=== PATIENT | male | born 1955 | race Caucasian/White ===

== ENCOUNTER 2020-05-24 05:20 | Day surgery (SDC) | payer MEDICARE ==
[2020-05-24] VITALS (15 sets, daily range): BP systolic 116–136; BP diastolic 46–78
[~2020-05-24] VITALS: Ht 180.3 cm; Wt 84.8 kg
[2020-05-24] MEDS ORDERED: normal saline 1,000 ML IV SCH (05:50)
[2020-05-24] MEDS ORDERED: diphenhydrAMINE 25mg capsule PO PRN (05:50)
[2020-05-24] MEDS ORDERED: LORazepam 0.5 MG tablet PO PRN (05:50)
[2020-05-24] MEDS ORDERED: AMLO10TA PO (06:45)
[2020-05-24] MEDS ORDERED: HYDR-4070 PO (06:45)
[2020-05-24] MEDS ORDERED: CARV6.253 PO (06:45)
[2020-05-24] MEDS ORDERED: PRAV80TA3 PO (06:45)
[2020-05-24] MEDS ORDERED: METF500T PO (06:45)
[2020-05-24] MEDS ORDERED: OLME5TAB3 PO (06:45)
[2020-05-24] MEDS ORDERED: LIDOcaine/PRILOcaine 5gm cream TP ONE (06:50)
[2020-05-24 07:16] LABS: BASOPHILS # (AUTO) 0.1 X10'3 (0-0.2); BASOPHILS % (AUTO) 0.7 % (0-1); EOSINOPHILS # (AUTO) 0.2 X10'3 (0-0.9); EOSINOPHILS % (AUTO) 2.5 % (0-6); HEMATOCRIT 43.5 % (42.0-52.0); HEMOGLOBIN 14.6 g/dl (14.0-17.9); LYMPHOCYTES # (AUTO) 1.8 X10'3 (1.1-4.8); LYMPHOCYTES % (AUTO) 22.9 % (21-51); MEAN CORPUSCULAR HEMOGLOBIN 28.7 PG (27.0-31.0); MEAN CORPUSCULAR HGB CONC 33.5 g/dL (33.0-36.5); MEAN CORPUSCULAR VOLUME 85.6 FL (78-98); MEAN PLATELET VOLUME 9.9 FL (7.4-10.4); MONOCYTES # (AUTO) 0.6 X10'3 (0-0.9); MONOCYTES % (AUTO) 8.1 % (2-12); NEUTROPHILS # (AUTO) 5.2 X10'3 (1.8-7.7); NEUTROPHILS % (AUTO) 65.8 % (42-75); PLATELET COUNT 216 X10'3 (140-440); RED BLOOD COUNT 5.08 X10'6 (4.70-6.10); RED CELL DISTRIBUTION WIDTH 13.9 % (11.5-14.5); WHITE BLOOD COUNT 7.9 X10'3 (4.5-11.0)
[2020-05-24 07:22] LABS: ALBUMIN 4.1 G/DL (3.4-5.0); ANION GAP 7 (8-16); BLOOD UREA NITROGEN 11 MG/DL (7-18); BUN/CREATININE RATIO 16.7 (5.4-32.0); CHLORIDE 107 MMOL/L (99-107); CREATININE 0.66 MG/DL (0.60-1.10); GLUCOSE 127 MG/DL (70-104); POTASSIUM 3.8 MMOL/L (3.5-5.1); SODIUM 143 MMOL/L (135-145); TOTAL CARBON DIOXIDE 28.8 MMOL/L (24-32); eGFR > 90 ML/MIN
[2020-05-24] MEDS ORDERED: nitroGLYCERIN-Tridil 50MG/D5W 250 ML IV ONE (07:41)
[2020-05-24] MEDS ORDERED: iohexol 350 MG/ML 50ML vial IV ONE ×2 (07:41→08:12)
[2020-05-24] MEDS ORDERED: verapamil 2.5 mg/ml inj IV ONE (07:41)
[2020-05-24] MEDS ORDERED: heparin 1,000unit/ml 10ml vial 10 ML ONE (07:41)
[2020-05-24] MEDS ORDERED: midazolam 2 mg/2 ml injection ONE (07:41)
[2020-05-24] MEDS ORDERED: fentaNYL/PF 50MCG/1 ML 2ML syringe ONE (07:41)
[2020-05-24] MEDS ORDERED: LIDOcaine 1% (10mg/ml)w/preservative injection 20ml MDV ONE (07:41)
[2020-05-24] MEDS ORDERED: iohexol 350MG/ML 100ml bottle IV ONE (07:41)
== END 2020-05-24 15:20 | disposition home or self-care (01) ==
LOC: SSTAY O 05:20
PROVIDERS: ATTEND Internal Medicine Cardiovascular Disease
DX: R94.31 Abnormal electrocardiogram [ECG] [EKG] (principal); R06.02 Shortness of breath; R53.83 Other fatigue; I25.10 Atherosclerotic heart disease of native coronary artery without angina pectoris; E11.9 Type 2 diabetes mellitus without complications; I10 Essential (primary) hypertension; E78.5 Hyperlipidemia, unspecified; E66.3 Overweight; Z68.25 Body mass index [BMI] 25.0-25.9, adult; I35.0 Nonrheumatic aortic (valve) stenosis; I71.2 Thoracic aortic aneurysm, without rupture; Z79.84 Long term (current) use of oral hypoglycemic drugs; Z79.899 Other long term (current) drug therapy; Z87.891 Personal history of nicotine dependence; Z90.49 Acquired absence of other specified parts of digestive tract; Z82.49 Family history of ischemic heart disease and other diseases of the circulatory system
CPT/HCPCS: 36415; 80048; 85025; 85610; 93005; 93460; 93567; 99152; 99153; C1769; C1887; C1894; J1644; J2001; J2250; J3010; J7030; Q0163; Q9967; A4620; C1751; J3490

== ENCOUNTER 2020-06-28 19:20 | Emergency (ER) | payer MEDICARE ==
[~2020-06-28] VITALS: Ht 180.3 cm; Wt 81.0 kg
[~2020-06-28 19:20] MED LIST: AMLO10TA PO; CARV6.253 PO; HYDR-4070 PO; METF500T PO; OLME5TAB3 PO; PRAV80TA3 PO
[2020-06-28 20:21] LABS: BASOPHILS # (AUTO) 0.1 X10'3 (0-0.2); BASOPHILS % (AUTO) 0.7 % (0-1); EOSINOPHILS # (AUTO) 0.4 X10'3 (0-0.9); EOSINOPHILS % (AUTO) 2.3 % (0-6); HEMATOCRIT 36.4 % (42.0-52.0); HEMOGLOBIN 11.7 g/dl (14.0-17.9); LYMPHOCYTES # (AUTO) 1.5 X10'3 (1.1-4.8); LYMPHOCYTES % (AUTO) 9.4 % (21-51); MEAN CORPUSCULAR HEMOGLOBIN 28.4 PG (27.0-31.0); MEAN CORPUSCULAR HGB CONC 32.3 g/dL (33.0-36.5); MEAN CORPUSCULAR VOLUME 87.7 FL (78-98); MEAN PLATELET VOLUME 7.4 FL (7.4-10.4); MONOCYTES # (AUTO) 1.5 X10'3 (0-0.9); MONOCYTES % (AUTO) 9.5 % (2-12); NEUTROPHILS # (AUTO) 12.7 X10'3 (1.8-7.7); NEUTROPHILS % (AUTO) 78.1 % (42-75); PLATELET COUNT 453 X10'3 (140-440); RED BLOOD COUNT 4.14 X10'6 (4.70-6.10); WHITE BLOOD COUNT 16.2 X10'3 (4.5-11.0)
[2020-06-28 20:35] LABS: ALANINE AMINOTRANSFERASE 227 U/L (12-78); ALBUMIN 3.3 G/DL (3.4-5.0); ALBUMIN/GLOBULIN RATIO 0.7 (1.1-1.5); ALKALINE PHOSPHATASE 102 IU/L (46-116); ANION GAP 7 (8-16); ASPARTATE AMINO TRANSFERASE 103 U/L (10-37); BILIRUBIN,TOTAL 0.2 MG/DL (0.1-1.0); BLOOD UREA NITROGEN 9 MG/DL (7-18); BUN/CREATININE RATIO 11.8 (5.4-32.0); CALCIUM 9.9 MG/DL (8.5-10.1); CHLORIDE 98 MMOL/L (99-107); CREATININE 0.76 MG/DL (0.60-1.10); GLUCOSE 158 MG/DL (70-104); POTASSIUM 4.7 MMOL/L (3.5-5.1); SODIUM 138 MMOL/L (135-145); TOTAL CARBON DIOXIDE 32.8 MMOL/L (24-32); TOTAL PROTEIN 7.8 G/DL (6.4-8.2); eGFR > 90 ML/MIN
--- NOTE | 2020-06-28 21:18 | NUR ---
[facility] [phone]
--- NOTE | 2020-06-28 21:22 | NUR ---
md aware of trop 0.19
[2020-06-28 21:49] LABS: MAGNESIUM 2.1 MG/DL (1.5-2.4)
[2020-06-28 21:53] LABS: PARTIAL THROMBOPLASTIN TIME 27 SECONDS (22-32)
[2020-06-28] MEDS ORDERED: normal saline 1000ml 1,000 ML IV ONE (22:00)
[2020-06-28] MEDS ORDERED: normal saline 1000ML IV soln IVB ONE (22:00)
[2020-06-28] MEDS ORDERED: iohexol 300mg/ml 100ml inj. ONE (22:13)
[2020-06-28] MEDS ORDERED: levoFLOXACIN-Levaquin 750MG/D5 150 ML IV ONE (23:15)
[2020-06-28] MEDS ORDERED: vancomycin/NS 1 GM ADD-VANTAGE 250 ML IV ONE (23:15)
--- NOTE | 2020-06-29 00:10 | NUR ---
MD MADE AWARE OF NEED FOR PAIN MEDICATION. MD ORDERED 2MG IV MORPHINE AND ANOTHER 500 NS. PT IN BED ON PHONE WITH . AWARE OF PLAN TO TRANSPORT.
[2020-06-29] MEDS ORDERED: morphine 2 MG/ML inj. syringe IV ONE ×2 (00:15→15:00)
--- NOTE | 2020-06-29 00:25 | NUR ---
PT APPEARS TO HAVE INCREASED WORK OF BREATHING. MD AWARE. FLUIDS STOPPED. TOTAL OF 750 MLS GIVEN OF NS IN ED. MORPHINE HAS IMPROVED PAIN. PT REPOSITIONED. DISCUSSED NATURE OF PAIN WITH MD. PT REPORTS THAT NECK PAIN IS ALSO ACROSS SHOULDERS. PT STATES THAT HE HAS HAD THIS PAIN SINCE SURGERY, BUT THINKS IT IS GETTING WORSE SITTING IN BED SO MUCH. STATED CONCERNS TO MD REGARDING THE PAIN BEING CONNECTED TO CARDIAC. PT DENIES CHEST PAIN. IV ANTIBIOTICS STILL RUNNING. DISCUSSED WITH MANAGER OF BUSINESS HAVING COME BACK TO SIT WITH PATIENT WHILE AWAITING TRANSPORT. RN, MANAGER OF BUSINESS, AND PRIMARY RN AGREE TO COMING BACK.
--- NOTE | 2020-06-29 00:26 | NUR ---
ADDITIONALLY, PT'S 150 ML/HR FLUIDS STOPPED.
[2020-06-29 00:51] LABS: CREATINE KINASE 30 U/L (39-308)
[2020-06-29 01:28] LABS: CLARITY,URINE CLEAR (Clear); COLOR,URINE YELLOW (Yellow); GLUCOSE, URINE NEGATIVE (Neg); KETONES,URINE NEGATIVE (Neg); LEUKOCYTE ESTERASE ,URINE NEGATIVE (Neg); NITRITES, URINE NEGATIVE (Neg); OCCULT BLOOD,URINE NEGATIVE (Neg); PROTEIN,URINE NEGATIVE (Neg); UA COLLECTION TYPE NON-SPECIFIED; UROBILINOGEN,URINE 0.2 E.U/dL (0.2-1.0)
--- NOTE | 2020-06-29 02:15 | NUR ---
PRIMARY RN ON BREAK . PT C/O OF NECK DISCOMFORT WARM MOIST COMPRESS APPLIED
--- NOTE | 2020-06-29 03:10 | NUR ---
CALLED [facility] PT IS ACCEPTED BUT WE JUST HAVE TO WAIT FOR A BED
[2020-06-29] MEDS: morphine 2 MG/ML inj. syringe IV PRN ×5 (03:16→12:05)
[2020-06-29] MEDS ORDERED: vancomycin/NS 1 GM ADD-VANTAGE 250 ML IV SCH (14:00)
--- NOTE | 2020-06-29 15:32 | NUR ---
NIYAHLLDonnell AND CLEAR LIQUIDS GIVEN PER MD
[2020-06-29] MEDS ORDERED: morphine 4 MG/ML inj SYRINge IV ONE (17:10)
--- NOTE | 2020-06-29 18:48 | NUR ---
ATTEMPTED TO CALL REPORT BUT THEY ARE CHANGING SHIFT AND ASKED IF I CALL BACK AT 2030.
--- NOTE | 2020-06-29 20:33 | NUR ---
REPORT CALLED TO [facility]
--- NOTE | 2020-06-29 20:55 | NUR ---
REACH AT BEDSIDE TO TRANSPORT PATIENT.
[2020-06-29 21:10] VITALS: BP 136/63
[2020-06-30] MEDS ORDERED: VANCOMYCIN LEVEL IV ONE (13:30)
== END 2020-06-29 21:13 | disposition short-term general hospital (02) ==
LOC: ER 19:21
DX: T81.43XA Infection following a procedure, organ and space surgical site, initial encounter (principal); J98.51 Mediastinitis; R77.8 Other specified abnormalities of plasma proteins; Z98.890 Other specified postprocedural states; Z79.899 Other long term (current) drug therapy; Y83.8 Other surgical procedures as the cause of abnormal reaction of the patient, or of later complication, without mention of misadventure at the time of the procedure; Y92.89 Other specified places as the place of occurrence of the external cause
CPT/HCPCS: 36415; 71045; 71260; 80053; 81003; 82550; 82553; 83605; 83735; 83874; 83880; 84145; 84484; 85025; 85610; 85730; 87040; 87635; 96361; 96365; 96366; 96367; 96368; 96375; 96376; 99291; C9803; J1956; J2270; J3370; J7030; Q9967

== ENCOUNTER 2021-10-13 14:52 | Emergency (ER) | payer MEDICARE ==
[~2021-10-13] VITALS: Ht 180.3 cm; Wt 86.0 kg
[2021-10-13 15:10] VITALS: BP 133/77
[2021-10-13] MEDS ORDERED: normal saline 1000ML IV soln IVB ONE (15:35)
[2021-10-13] MEDS ORDERED: ondansetron/PF 4mg/2ml inj IV ONE (15:35)
[2021-10-13 16:20] LABS: BASOPHILS % (AUTO) 0.2 % (0-1); EOSINOPHILS % (AUTO) 0.2 % (0-6); HEMATOCRIT 44.3 % (42.0-52.0); HEMOGLOBIN 15.5 g/dl (14.0-17.9); LYMPHOCYTES % (AUTO) 8.9 % (21-51); MEAN CORPUSCULAR HGB CONC 35.1 g/dL (33.0-36.5); MEAN CORPUSCULAR VOLUME 82.6 FL (78-98); MEAN PLATELET VOLUME 8.4 FL (7.4-10.4); MONOCYTES # (AUTO) 1.1 X10'3 (0-0.9); MONOCYTES % (AUTO) 10.5 % (2-12); NEUTROPHILS # (AUTO) 8.6 X10'3 (1.8-7.7); NEUTROPHILS % (AUTO) 80.2 % (42-75); PLATELET COUNT 249 X10'3 (140-440); RED BLOOD COUNT 5.36 X10'6 (4.70-6.10); RED CELL DISTRIBUTION WIDTH 13.3 % (11.5-14.5); WHITE BLOOD COUNT 10.8 X10'3 (4.5-11.0)
[2021-10-13 16:36] LABS: ALANINE AMINOTRANSFERASE 51 U/L (12-78); ALBUMIN 3.7 G/DL (3.4-5.0); ALKALINE PHOSPHATASE 82 IU/L (46-116); ANION GAP 11 (8-16); ASPARTATE AMINO TRANSFERASE 50 U/L (10-37); BILIRUBIN,TOTAL 0.6 MG/DL (0.1-1.0); BLOOD UREA NITROGEN 13 MG/DL (7-18); BUN/CREATININE RATIO 15.3 (5.4-32.0); CALCIUM 9.4 MG/DL (8.5-10.1); CHLORIDE 93 MMOL/L (99-107); CREATININE 0.85 MG/DL (0.60-1.10); GLUCOSE 94 MG/DL (70-104); POTASSIUM 3.6 MMOL/L (3.5-5.1); SODIUM 134 MMOL/L (135-145); TOTAL CARBON DIOXIDE 29.9 MMOL/L (24-32); TOTAL PROTEIN 7.4 G/DL (6.4-8.2); eGFR 90 ML/MIN
[2021-10-13] MEDS ORDERED: ONDA-103 PO (17:09)
[2021-10-13] MEDS ORDERED: PRED20TA PO (17:09)
[2021-10-13] MEDS ORDERED: ALBU6.7H9 INH (17:09)
[2021-10-13] MEDS ORDERED: LEVO500T90 PO (17:09)
== END 2021-10-13 17:35 | disposition home or self-care (01) ==
LOC: ER 14:53
DX: U07.1 COVID-19 (principal); J12.82 Pneumonia due to coronavirus disease 2019; R11.0 Nausea; E86.0 Dehydration; Z95.0 Presence of cardiac pacemaker; Z98.890 Other specified postprocedural states; Z79.899 Other long term (current) drug therapy; Z79.2 Long term (current) use of antibiotics
CPT/HCPCS: 36415; 71045; 80053; 85025; 96361; 96374; 99284; J2405; J7030

== ENCOUNTER 2021-11-04 14:12 | Emergency (ER) | payer MEDICARE ==
[~2021-11-04] VITALS: Ht 180.3 cm; Wt 86.4 kg
[~2021-11-04 14:12] MED LIST changes: +ALBU6.7H9 INH; +ONDA-103 PO
[2021-11-04 15:00] VITALS: BP 94/57
== END 2021-11-04 15:34 | disposition home or self-care (01) ==
LOC: ER 14:14
DX: U09.9 Post COVID-19 condition, unspecified (principal); R05.9 Cough, unspecified; R53.83 Other fatigue; I10 Essential (primary) hypertension; E11.9 Type 2 diabetes mellitus without complications; Z87.01 Personal history of pneumonia (recurrent); Z95.0 Presence of cardiac pacemaker; Z98.890 Other specified postprocedural states; Z79.899 Other long term (current) drug therapy
CPT/HCPCS: 71045; 99283